=== PATIENT | female | born 1970 | race Caucasian/White ===

== ENCOUNTER 2020-06-06 05:11 | Day surgery (SDC) | payer BC, OTHER ==
[2020-06-06] MEDS ORDERED: SODIUM CHLORIDE 0.9% 1000ML 1,000 ML ONE (06:36)
[2020-06-06] MEDS ORDERED: LIDOCAINE 1% 10 ML VIAL INJ ONE (07:00)
[2020-06-06] MEDS ORDERED: PROPOFOL 200 MG/20 ML VIAL IV ONE (07:00)
--- NOTE | 2020-06-06 08:59 | OP ---
DATE OF PROCEDURE: 06/06/20 PREOPERATIVE DIAGNOSIS: 1. Average risk colorectal cancer screening. POSTOPERATIVE DIAGNOSIS: 1. Diverticulosis in the descending and sigmoid colon, otherwise unremarkable. PROCEDURE: 1. Colonoscopy. SURGEON: Alvaro Peng MD ANESTHESIA: Monitored anesthesia care. ESTIMATED BLOOD LOSS: Less than 5 mL. COMPLICATIONS: None. PROCEDURE: The patient was placed in the left lateral decubitus position. A time-out was performed. After deep sedation was achieved, a digital rectal exam was performed and was noted to be unremarkable. The Olympus adult colonoscope was inserted through the anus, into the rectum and advanced to the cecum and terminal ileum under direct visualization. Photodocumentation of the cecum including appendiceal orifice, ileocecal valve and terminal ileum was performed. The patients bowel preparation was good. The endoscope was then progressively withdrawn and the total colonic lumen evaluated. The endoscope was then withdrawn and the procedure terminated. The patient tolerated the procedure well with no immediate complications. FINDINGS: 1. Mild to moderate diverticulosis was seen in the descending and sigmoid colon. There was no evidence of bleeding or diverticulitis. 2. The colonoscopy exam was otherwise unremarkable to the terminal ileum. No polyps were seen. IMPRESSION: 1. Descending colon and sigmoid colon diverticulosis. RECOMMENDATIONS: 1. Okay to discharge home once the patient meets discharge criteria. 2. Resume prior diet. 3. Resume home medications. 4. Repeat colonoscopy in 10 years for screen. 5. Followup in the referring physician as previously scheduled. #[id number] MTDD
[2020-06-06 09:59] VITALS: BP 131/72; TEMP 99; O2SAT 100
== END 2020-06-06 09:30 | disposition home or self-care (01) ==
LOC: AMB 05:11
PROVIDERS: ATTEND Internal Medicine Gastroenterology
DX: Z12.11 Encounter for screening for malignant neoplasm of colon (principal); K57.30 Diverticulosis of large intestine without perforation or abscess without bleeding; Z79.899 Other long term (current) drug therapy; E66.9 Obesity, unspecified; Z68.32 Body mass index [BMI] 32.0-32.9, adult
CPT/HCPCS: 00812; 45378; J3490; J7030